=== PATIENT | female | born 1945 | race Caucasian/White ===

== ENCOUNTER 2017-04-08 19:43 | Emergency (ER) | payer MEDICARE ==
[2017-04-08] MEDS ORDERED: HYDROmorphone HCL 1 MG/ML SYR ONE (20:12)
[2017-04-08] MEDS ORDERED: LORazepam 1 MG TABLET ONE (20:38)
[2017-04-08] MEDS ORDERED: oxyCODONE/APAP 5/325 MG PREPAC 1 TAB TABLET PO ONE (21:03)
--- NOTE | 2017-04-08 21:08 | ER NURSING DOCUMENTATION ---
Nurse's Notes [facility] Name:Amparo Tran Age:72 yrs Sex:Female :1945 Arrival Date:04/08/2017 Time:19:43 Bed1 Private MD:Yelena Oseguera Diagnosis:Acute Back Pain;Chronic Back Pain Presentation: 04/08 19:45 Acuity: MARLYS 3 19:54 Presenting complaint: Patient states: PT has L3/L4 compression fracture. She is being rh tx through [facility] with injection of pain medication occasionally and percocet at home. Pt today was leaning over her bed and pulled rubber maid of clothing toward herself and felt a pop in her back and then a sharp shooting pain down her left leg. Transition of care: Home. 19:54 Method Of Arrival: Private Vehicle Triage Assessment: 19:57 General: Appears uncomfortable, Behavior is cooperative. Pain: Complains of pain in rh lumbar area Pain radiates to left leg. EENT: Oral mucosa is moist. Neuro: Level of Consciousness is awake, alert, obeys commands. Respiratory: Airway is patent Respiratory effort is even, unlabored. Musculoskeletal: Circulation, motion, and sensation intact Range of motion intact in all extremities. Historical: - Allergies: IODINEIODINE CONTAINING; Albuterol; - Home Meds: 1. Metformin Oral 2. Alprazolam Oral for sleep 3. lisinopril 10 mg oral tab once daily 4. pramipexole 0.25 mg oral tab 1 tab 5. Vitamin D Oral 6. pantoprazole oral 7. duloxetine oral 8. Potassium Chloride Oral 9. Flonase Nasal 10. gabapentin oral 11. Morphine Oral 12. Baclofen Oral 13. Simvastatin Oral 14. MS Contin 15. Hydrocodone-Acetaminophen 5-325 mg Oral - PMHx: DIABETES - NIDDM; HYPERTENSION; CHRONIC PAIN; COPD; TIA; PANCREATITIS; EMPHYSEMA; FIBROMYALGIA; Neoplasm skin; Hyperlipidemia; Hyponatremia; Hypokalemia; Chronic Mid Back Pain (July 19, 2016); HYPOTENSION (July 19, 2016); Dehydration (July 19, 2016); Delirium(July 26, 2016); - PSHx: APPENDECTOMY; TONSILLECTOMY; CHOLECYSECTOMY; HYSTERECTOMY; - Tetanus: < 10 years. - Ebola Screening: : Patient negative for fever greater than or equal to 101.5 degrees Fahrenheit, and additional compatible Ebola Virus Disease symptoms. - Immunization history: Flu Vaccine < 1 year. - Social history: Smoking status: Patient uses tobacco products, current every day smoker. Screenin:58 Infectious Disease Risk None. Abuse screen: Denies threats or abuse. Denies injuries rh from another. Nutritional screening: No deficits noted. Assessment: 19:58 See Triage Assessment done by same RN. Vital Signs: 19:58 BP 200 / 117 LA Sitting (auto/reg); Pulse 93; Resp 24 S; Temp 98.4(O); Pulse Ox 90% on em3 R/A; Pain 10/10; 21:07 BP 151 / 91; Pulse 75; Resp 16; Pulse Ox 92% on R/A; Pain 4/10; rh ED Course: 19:44 Patient arrived in ED. [facility] 19:45 Mora Santillan is Primary Nurse. 19:45 Triage completed. 19:45 Yelena Oseguera DO is Private Physician. [facility] 19:55 Gonzalo Thomas MD is Attending Physician. 19:57 Valuables Remains with patient Patient has correct armband on for positive em3 identification. Bed in low position. Call light in reach. Side rails up X2. 20:46 Yelena Oseguera DO is Referral Physician. charli Administered Medications: 20:03 Drug: Dilaudid 2 mg; Route: IM; Site: right gluteus; rh 21:06 Follow up: Response: Pain is decreased rh 20:35 Drug: Ativan 1 mg; Route: PO; rh 21:07 Follow up: Response: Anxiety decreased rh 21:06 Drug: Percocet Tablet (5 mg-325 mg) 6 tabs; Route: PO; rh 21:07 Follow up: Response: Pharmacy closed - take home med pack Outcome: 20:47 Discharge ordered by . charli 21:07 Discharged to home ambulatory, with family. rh 21:07 Condition: improved 21:07 Discharge Assessment: Patient awake, alert and oriented x 3. No cognitive and/or functional deficits noted. Patient verbalized understanding of disposition instructions. 21:07 Discharge instructions given to patient, Instructed on discharge instructions, follow up and referral plans. Demonstrated understanding of instructions. 21:07 Patient left the ED. 04/10 12:42 Discharge F/U Call: Unable to reach: no answer st Signatures: Huma Connell, RN RN Gonzalo Guevara MD MD jm Meiklejohn, Eric em3 Mora Santillan Melissa ma1
--- NOTE | 2017-04-08 21:08 | ER PHYSICIAN DOCUMENTATION ---
Physician Documentation [facility] Name:Amparo Tran Age:72 yrs Sex:Female :1945 Arrival Date:04/08/2017 Time:19:43 Bed1 Private MD:Yelena Oseguera ED, John Disposition: 04/08/17 20:47 Discharged to Home/Self Care. Impression: Acute Back Pain, Chronic Back Pain. - Condition is Good. - Discharge Instructions: BACK PAIN (Acute or Chronic). - Medical Reconciliation form form. - Follow up: Yelena Oseguera DO; When: 4- 6 days; Reason: Continuance of care. - Problem is new. - Symptoms have improved. HPI: 04/08 20:00 This 72 yrs old Female presents to ER via Private Vehicle with complaints of jm Leg Pain, Back Pain. 20:00 The patient presents with pain, that is chronic. The complaints affect the left leg and jm lumbar area. Context: resulted from lifting a box. . Onset: The symptom(s)/episode began/occurred just prior to arrival. Modifying factors: the symptoms are aggravated by movement. Associated signs and symptoms: Pertinent positives: back pain. The patient has experienced similar episodes in the past, and the symptoms today are exactly the same, to when the patient was apparently diagnosed with acute on chronic back pain. . Historical: - Allergies: IODINEIODINE CONTAINING; Albuterol; - Home Meds: 1. Metformin Oral 2. Alprazolam Oral for sleep 3. lisinopril 10 mg oral tab once daily 4. pramipexole 0.25 mg oral tab 1 tab 5. Vitamin D Oral 6. pantoprazole oral 7. duloxetine oral 8. Potassium Chloride Oral 9. Flonase Nasal 10. gabapentin oral 11. Morphine Oral 12. Baclofen Oral 13. Simvastatin Oral 14. MS Contin 15. Hydrocodone-Acetaminophen 5-325 mg Oral - PMHx: DIABETES - NIDDM; HYPERTENSION; CHRONIC PAIN; COPD; TIA; PANCREATITIS; EMPHYSEMA; FIBROMYALGIA; Neoplasm skin; Hyperlipidemia; Hyponatremia; Hypokalemia; Chronic Mid Back Pain (July 19, 2016); HYPOTENSION (July 19, 2016); Dehydration (July 19, 2016); Delirium(July 26, 2016); - PSHx: APPENDECTOMY; TONSILLECTOMY; CHOLECYSECTOMY; HYSTERECTOMY; - Tetanus: < 10 years. - Ebola Screening: : Patient negative for fever greater than or equal to 101.5 degrees Fahrenheit, and additional compatible Ebola Virus Disease symptoms. - Immunization history: Flu Vaccine < 1 year. - Social history: Smoking status: Patient uses tobacco products, current every day smoker. ROS: 20:00 Constitutional: Negative for fever. jm 20:00 Back: Positive for pain at rest, pain with movement, radiated pain. 20:00 MS/extremity: Positive for paresthesias, tingling. 20:00 Neuro: Positive for tingling, Negative for numbness, weakness. Exam: 20:00 Constitutional: The patient appears alert, awake, anxious, in obvious distress, jm moderately distressed. 20:00 Cardiovascular: Rate: normal, Rhythm: regular. 20:00 Respiratory: Respirations: normal, Breath sounds: are normal. 20:00 Musculoskeletal/extremity: Pulses: are normal with no appreciated deficits, Sensation intact. 20:00 Neuro: Mentation: is normal, Memory: is normal, Deep tendon reflexes are 2+ (normal) in the right patellar and left patellar. Vital Signs: 19:58 BP 200 / 117 LA Sitting (auto/reg); Pulse 93; Resp 24 S; Temp 98.4(O); Pulse Ox 90% on em3 R/A; Pain 10/10; 21:07 BP 151 / 91; Pulse 75; Resp 16; Pulse Ox 92% on R/A; Pain 4/10; rh MDM: 19:53 Patient medically screened. 22:48 Differential diagnosis: acute on chronic back pain. Data reviewed: vital signs, nurses notes, old medical records, and as a result, I will discharge patient. Medication response: The patient's symptoms have improved, Dilaudid. Response to treatment: the patient's symptoms have markedly improved after treatment. Dispensed Medications: 20:03 Drug: Dilaudid 2 mg; Route: IM; Site: right gluteus; rh 21:06 Follow up: Response: Pain is decreased rh 20:35 Drug: Ativan 1 mg; Route: PO; rh 21:07 Follow up: Response: Anxiety decreased rh 21:06 Drug: Percocet Tablet (5 mg-325 mg) 6 tabs; Route: PO; rh 21:07 Follow up: Response: Pharmacy closed - take home med pack rh Signatures: Gonzalo Thomas MD MD jm Hofsess, Rachel
== END 2017-04-08 21:08 | disposition home or self-care (01) ==
LOC: ER 19:43
DX: M54.5 Low back pain (principal); G89.29 Other chronic pain; M79.605 Pain in left leg; R20.2 Paresthesia of skin; E11.9 Type 2 diabetes mellitus without complications; I10 Essential (primary) hypertension; F17.210 Nicotine dependence, cigarettes, uncomplicated; Z79.899 Other long term (current) drug therapy
CPT/HCPCS: 96372; 99283; J1170